=== PATIENT | male | born 1960 | race Caucasian/White ===

== ENCOUNTER 2016-08-11 10:09 | Emergency (ER) | payer BC ==
[2016-08-11 10:41] LABS: ABSOLUTE EOSINOPHILS # (AUTO) 0.1 10^3/uL (0.0-0.6); ABSOLUTE LYMPHOCYTES (AUTO) 2.2 10^3/uL (0.5-4.7); ABSOLUTE MONOCYTES (AUTO) 0.6 10^3/uL (0.1-1.4); ABSOLUTE NEUT (AUTO) 6.7 10^3/uL (1.7-8.2); BASOPHILS % (AUTO) 0.5 % (0-2); EOSINOPHILS % (AUTO) 1.1 % (0-6); HEMATOCRIT 34.9 % (37.9-51.0); HEMOGLOBIN 11.7 g/dL (13.5-17.0); HGB HCT DIFFERENCE 0.2; MEAN CORPUSCULAR HGB CONC 33.6 g/dL (32.0-36.0); MEAN CORPUSCULAR VOLUME 86 fl (80-97); MONOCYTES % (AUTO) 6.2 % (3-13); RED BLOOD COUNT 4.04 10^6/uL (4.35-5.55); RED CELL DISTRIBUTION WIDTH 13.3 % (11.5-14.0); SEGMENTED NEUTROPHILS % (AUTO) 69.2 % (42-78); WHITE BLOOD COUNT 9.6 10^3/uL (4.0-10.5)
--- NOTE | 2016-08-11 10:48 | ER Document Report ---
ED GI/ - General Mode of Arrival: Medic Information source: Patient, Relative - HPI Patient complains to provider of: Other - hematochezia Onset: Yesterday Quality of pain: No pain Location: Rectal Associated symptoms: Other - see notes above <HERMAN TATUM - Last Filed: 08/11/16 18:13> <CORNELIUSHAMMAD LION - Last Filed: 08/11/16 18:34> - General Chief Complaint: Rectal Bleeding Stated Complaint: RECTAL BLEEDING Notes: 56 year old male with history of an [place] (3-4 years ago; medicated with Plavix) presents to the ED complaining of hematochezia that started yesterday. Patient reports that he passed stool with blood twice yesterday that that turned the toilet water red. Patient was also having episodes of diarrhea yesterday. This morning, patient woke up with an "upset stomach" and again passed blood while on the toilet. Patient sat down to eat breakfast, but had to get up to use the restroom again. Patient was walking towards the restroom when he fainted and fell face first to the floor. Patient's helped him up and walked him to the restroom where he fainted again. helped him on the toilet and explains that he started passing clots of blood (not streaked) with some stool. Patient currently denies abdominal pain and nausea. Patient's primary care provider is Dr. Enriquez. Patient does not have a GI physician. (HERMAN TATUM) - Related Data Allergies/Adverse Reactions: No Known Allergies Allergy (Verified 08/11/16 10:28) Past Medical History - General Information source: Patient - Social History Smoking Status: Never Smoker Chew tobacco use (# tins/day): No Frequency of alcohol use: None Drug Abuse: None Family History: Reviewed & Not Pertinent - Past Medical History Cardiac Medical History: Reports: Hx Heart Attack - [id number], Hx Hypertension Endocrine Medical History: Reports: Hx Diabetes Mellitus Type 2 Past Surgical History: Reports: Hx Cardiac Catheterization, Hx Cardiac Surgery - Stent x 1 - Immunizations Hx Diphtheria, Pertussis, Tetanus Vaccination: No <HERMAN TATUM - Last Filed: 08/11/16 18:13> Review of Systems - Review of Systems Constitutional: No symptoms reported EENT: No symptoms reported Cardiovascular: No symptoms reported Respiratory: No symptoms reported Gastrointestinal: See HPI, Diarrhea - yesterday, Rectal bleeding. denies: Abdominal pain, Nausea Genitourinary: No symptoms reported Male Genitourinary: No symptoms reported Musculoskeletal: No symptoms reported Skin: No symptoms reported Hematologic/Lymphatic: No symptoms reported Neurological/Psychological: No symptoms reported -: Yes All other systems reviewed and negative <HERMAN TATUM - Last Filed: 08/11/16 18:13> Physical Exam - General General appearance: Alert In distress: None - HEENT Head: Other - abrasion to the nose and top of the head. No: Normocephalic Eyes: Normal Extraocular movements intact: Yes Pupils: PERRL Mucous membranes: Dry - Respiratory Respiratory status: No respiratory distress Breath sounds: Normal - Cardiovascular Rhythm: Regular Heart sounds: Normal auscultation - Abdominal Inspection: Normal Distension: No distension Tenderness: Nontender - Rectal Stool: Heme positive - bright red blood at the rectum - Extremities General upper extremity: Normal inspection, Normal ROM General lower extremity: Normal inspection, Normal ROM - Neurological Neuro grossly intact: Yes Cognition: Normal Orientation: AAOx4 John Coma Scale Eye Opening: Spontaneous Garibaldi Coma Scale Verbal: Oriented Garibaldi Coma Scale Motor: Obeys Commands Garibaldi Coma Scale Total: 15 Speech: Normal - Psychological Associated symptoms: Normal affect, Normal mood - Skin Skin Temperature: Warm Skin Moisture: Dry Skin Color: Normal <HERMAN TATUM - Last Filed: 08/11/16 18:13> Course - Laboratory Result Diagrams: 08/11/16 10:20 08/11/16 10:20 - Consults Disability Examiner Time consulted: 10:39 Dr. Joshua Time consulted: 10:40 [facility] Time consulted: 11:32 Dr. Hou Time consulted: 11:47 <HERMAN TATUM - Last Filed: 08/11/16 18:13> - Laboratory Result Diagrams: 08/11/16 10:20 08/11/16 10:20 <HAMMAD SHIELDS - Last Filed: 08/11/16 18:34> - Re-evaluation Re-evalutation: 08/11/16 Patient is a 56-year-old male who comes in complaining of bright red blood per rectum and 2 episodes of syncope at home. Patient does have blood per rectum. He has had no further bowel movements here in the emergency department. Patient is anemic. States no history of anemia. Patient is on Plavix. Patient does not have any abdominal pain. Appears well otherwise. She is orthostatic when he tries to stand up or ambulate. Patient has been discussed with the hospitalist service to [facility] and will be transferred there for further workup of his symptoms is there is no gastroenterology on-call here. Stable for transfer. Understands agrees with plan. 08/11/16 13:15 Resting comfortably. Stable for transfer. (HAMMAD SHIELDS) - Vital Signs Vital signs: Temp Pulse Resp BP Pulse Ox 14 125/73 98 08/11/16 13:01 08/11/16 13:01 08/11/16 13:01 - Laboratory Laboratory results interpreted by me: 08/11/16 08/11/16 08/11/16 10:20 10:20 10:20 RBC 4.04 L Hgb 11.7 L Hct 34.9 L APTT 23.2 L Chloride 108 H Glucose 233 H POC Glucose Total Bilirubin 1.4 H 08/11/16 10:45 RBC Hgb Hct APTT Chloride Glucose POC Glucose 223 H Total Bilirubin - Consults Disability Examiner Reason for consultation: 08/11/16 10:39 Disability Examiner was called to see if GI is on tomorrow, but informed that GI will not be on until Friday (08/13/2016). (HERMAN TATUM) Dr. Joshua Reason for consultation: 08/11/16 10:40 Dr. Joshua was called and states he will not take the patient since GI is not on and agrees that the patient will have to be transferred. (HERMAN TATUM) [facility] Reason for consultation: 08/11/16 11:32 [facility] was paged for transfer of patient to their facility. (HERMAN TATUM) Dr. Hou Reason for consultation: 08/11/16 11:47 Patient was discussed with Dr. Hou of [facility] (who answered the page ) and agrees to admit the patient pending bed assignment. (HERMAN TATUM) Critical Care Note - Critical Care Note Total time excluding time spent on procedures (mins): 45 - evaluation and management of GI bleed, coordination of transfer, resuscitation, counseling of family <WODOWSKI,HAMMAD LION - Last Filed: 08/11/16 18:34> Discharge <HERMAN TATUM - Last Filed: 08/11/16 18:13> <HAMMAD SHIELDS - Last Filed: 08/11/16 18:34> - Discharge Clinical Impression: GI bleed Qualifiers: GI bleed type/associated pathology: unspecified gastrointestinal hemorrhage type Qualified Code(s): K92.2 - Gastrointestinal hemorrhage, unspecified Condition: Stable Disposition: [facility] Scribe Attestation: 08/11/16 18:34 I personally performed the services described in the documentation, reviewed and edited the documentation which was dictated to the scribe in my presence, and it accurately records my words and actions. (HAMMAD SHIELDS) Scribe Documentation - Scribe Written by Scribe:: Keon Saenz, 08/11/2016 1131 acting as scribe for :: Cornelius <HERMAN TATUM - Last Filed: 08/11/16 18:13>
[2016-08-11 10:49] LABS: ALANINE AMINOTRANSFERASE 37 U/L (21-72); ALBUMIN 3.6 g/dL (3.5-5.0); ALKALINE PHOSPHATASE 89 U/L (38-126); ANION GAP 12 (5-19); ASPARTATE AMINO TRANSFERASE 20 U/L (17-59); BILIRUBIN,DIRECT 0.2 mg/dL (0.0-0.4); BILIRUBIN,TOTAL 1.4 mg/dL (0.2-1.3); BLOOD UREA NITROGEN 20 mg/dL (7-20); CALCIUM 8.6 mg/dL (8.4-10.2); CARBON DIOXIDE 24 mmol/L (22-30); CHLORIDE 108 mmol/L (98-107); CREATININE RESULT 0.75 mg/dL (0.52-1.25); GLUCOSE 233 mg/dL (75-110); TOTAL PROTEIN 6.3 g/dL (6.3-8.2)
[2016-08-11] MEDS ORDERED: RINGERS SOLUTION,LACTATED 1,000 ML IV ONE (13:04)
[2016-08-11 13:25] VITALS: BP 125/73
--- NOTE | 2016-08-11 21:13 | EKG REPORT ---
SEVERITY:- ABNORMAL ECG - SINUS RHYTHM PROBABLE INFERIOR INFARCT, AGE INDETERMINATE : Confirmed by: Rosaura Jacob MD 11-Aug-2016 21:12:28
== END 2016-08-11 13:23 | disposition short-term general hospital (02) ==
LOC: ER 10:09
DX: K92.2 Gastrointestinal hemorrhage, unspecified (principal); K62.5 Hemorrhage of anus and rectum; R19.7 Diarrhea, unspecified
CPT/HCPCS: 93005; 99291; 96374; 86900; 86901; 36415; 86850; 82962; 85025; 85610; 85730; 82272; 80053; 84484; 70450; 93010; J7120